=== PATIENT | female | born 1960 | race Caucasian/White ===

== ENCOUNTER → 2023-10-08 07:55 | Outpatient (REF) | payer BC, SELFPAY ==
[2023-10-08 10:06] LABS: % Basophils 0.4 % (0-2); % Eosinophils 1.8 % (0-6); % Immature Granulocytes 0.2 % (0-0.5); % Lymphocytes 55.1 % (20.5-51.1); % Monocytes 10.2 % (1.7-9.3); % Neutrophils 32.3 % (42.2-75.2); Absolute Eosinophils 0.1 10^3/uL (0-0.7); Absolute Lymphocytes 2.8 10^3/uL (1.2-3.4); Absolute Monocytes 0.5 10^3/uL (0.1-0.6); Absolute Neutrophils 1.7 10^3/uL (1.4-6.5); Hematocrit 42.4 % (37.0-47.0); Hemoglobin 14.8 g/dL (12.0-16.0); Mean Corp Hgb Conc. 34.9 g/dL (33.0-37.0); Mean Corpuscular Hgb 34.3 pg (27.0-31.0); Mean Corpuscular Volume 98.4 fL (81.0-99.0); Mean Platelet Volume 10.5 fL (7.4-10.4); Nucleated Red Blood Cells % 0 %; Platelet Count 215 10^3/uL (130-400); Red Blood Cell Count 4.31 10^6/uL (4.20-5.40); Red Cell Dist. Width 12.2 % (11.5-14.5); White Blood Cell Count 5.1 10^3/uL (4.8-10.8)
[2023-10-08 10:33] LABS: Blood Urea Nitrogen 16 mg/dl (7-17); Carbon Dioxide 26 mmol/L (22-30); Chloride 104 mmol/L (98-107); Glucose 91 mg/dl (70-99); Potassium 3.9 mmol/L (3.5-5.1); Sodium 139 mmol/L (135-145); eGFR > 60.00
== END ==
LOC: HWLAB 07:55
PROVIDERS: ATTENDING PHYSICIAN Orthopaedic Surgery; FAMILY PHYSICIAN Nurse Practitioner Adult Health
DX: Z01.818 Encounter for other preprocedural examination (principal)
CPT/HCPCS: 36415; 80048; 85025

== ENCOUNTER 2023-10-16 13:44 | Emergency (ER) | payer BC, SELFPAY ==
[2023-10-16 13:48] VITALS: BP 118/65
--- NOTE | 2023-10-16 15:26 | ED.GENMED ---
History of Present Illness
General
Chief Complaint: Ear Problem
Source: patient and spouse
Time Seen by Provider: 10/16/23 15:06
Travel History
Have you had any contact with someone who has COVID-19?: No
Do you have any symptoms of coronavirus? Fever > 100 degrees, chills, cough, shortness of breath, sore throat, loss of taste or smell, muscle aches, or headache?: No
History of Present Illness
History of Present Illness:
63-year-old female presenting to the emergency department for evaluation of right-sided ear pain that started over the last 24 hours, went to urgent care yesterday afternoon and was given drops but due to persistent symptoms today went back to the
urgent care where she was told she did not need the drops as she did not have an outer ear infection but was given a Z-Cristobal with concern for possible otitis media, took 1 dose of this medication but due to continued pain decided to come to the ER for
further evaluation. Patient notes that she never took the drops as she had been unable to picker/puller the drops this morning prior to going back to the urgent care. She endorses other URI-like symptoms including sinus congestion, mild cough and sore
throat but denies any fevers, chills, rigors. She also admits to a little bit of tinnitus and decreased hearing out of the right ear. Patient last took some Advil around 5 AM but has not taken anything since for the pain. Patient has no other
concerns at this time.
Past History
Past History
ED Past Medical History: GERD and Other (Cervical DJD, lumbar DJD)
ED Past Surgical History: Orthopedic (Lumbar laminectomy 2011, left knee meniscus repair, back surgery February 2014)
Social History
Tobacco: Non-smoker
Alcohol: Occasional
Drug: None
Personal:
Living: with family
Employment: Employed
Family History
Family History: Other (Breast cancer in her mother and father with coronary disease)
Review of Systems
Review of Systems
All Other Systems: ROS reviewed and negative except as documented in HPI and ROS
Phy Exam
Physical Exam
Physical Exam:
GENERAL: Alert , appears uncomfortable and holding her right ear
Head: Normocephalic atraumatic
EYE: conjunctiva clear
NECK: Supple, tender bilateral submandibular and preauricular lymphadenopathy, no meningismus
ENT: o/p clr, no tonsillar edema or exudates left TM is clear, No effusions, cone of light easily visualized, right TM is slightly dusky in appearance but without any effusion or erythema/bulging of the TM. There is no mastoid erythema or
tenderness there is no tenderness to the pinna or tragus. mmm.
CARDIAC: Regular rate and rhythm, no murmur
LUNGS: Clear breath sounds bilaterally, no acute respiratory distress, no wheezes/rales/rhonchi, intermittent nonproductive cough noted
NEUROLOGICAL: Alert and oriented
SKIN: Warm and dry, skin intact.
MUSCULOSKELETAL: well perfused.
PSYCH: Normal and appropriate interaction.
Scores
Heart Failure Risk
Heart Failure Risk Score: Not Applicable
Heart Score for Chest Pain Patients
STEMI patient?: Not applicable
Withdrawal Assessment of Alcohol
Withdrawal Assessment Completed?: Not applicable
Course
Vital Signs
Initial and Last Documented VS:
Initial Vital Signs
Temp Pulse Resp BP Pulse Ox
99.0 F 101 16 118/65 95
10/16/23 13:48 10/16/23 13:48 10/16/23 13:48 10/16/23 13:48 10/16/23 13:48
Last Documented Vital Signs
Temp Pulse Resp BP Pulse Ox
99.0 F 101 16 118/65 95
10/16/23 13:48 10/16/23 13:48 10/16/23 13:48 10/16/23 13:48 10/16/23 13:48
MDM/Problems Addressed
Differential Diagnosis Includes:
Viral URI, otitis media, otitis externa, mastoiditis, TMJ, neurologic etiology such as carotid dissection considered however given no risk factors outside of patient being a former smoker and combined with her upper respiratory-like symptoms I am
not suspicious for this as a likely diagnosis.
MDM/Problems Addressed:
63-year-old female present emergency department for evaluation of URI-like symptoms over the last few days, over the last 24 hours has had increased right-sided ear pain. Took 1 dose of a Z-Cristobal about 1 hour prior to arrival to the emergency
department. Has only attempted 1 dose of NSAIDs today. Advised patient continue NSAIDs/Tylenol as needed for pain. Will prescribe a steroid as well as Sudafed for continued pain management. I provided the patient with information for an ENT to
follow-up with as needed. She is otherwise stable for discharge home.
*Pulse Oximetry
Patient hypoxic: no
*Critical Care Note
Total Time (30-74mins, 75-104mins- exclusive of procedures): Not Applicable
ED Attending Note
-
Portions of this chart may have been created with voice recognition software.� Occasional wrong word or��sound alike� substitutions may have occurred due to the inherent limitations of voice recognition software.
Discharge Plan
Departure
Patient Disposition: Home (Routine Discharge)
Date of Disposition: 10/16/23
Time of Disposition: 15:28
Patient with high blood pressure during this ER visit?: No
Discharge Problem:
Otalgia of right ear
Instructions: Bacterial Upper Respiratory Infection, Adult (DC)
Prescriptions:
New
prednisone 10 mg Tablet
See Rx Instructions .ROUTE .COMPLEX Qty: 30 0RF
Rx Instructions:
Take By Mouth:
40 mg daily x3 days, 30 mg daily x3 days,
20 mg daily x3 days, 10 mg daily x3 days.
pseudoephedrine HCl [Sudafed] 30 mg tablet
60 mg PO ONCE PRN (Reason: congestion) Qty: 10 0RF
No Action
cyclobenzaprine 10 MG tablet
10 mg PO TIDPRN PRN (Reason: back; neck pain)
buspirone 5 MG tablet
5 - 10 mg PO TID
alprazolam 1 MG tablet
2 mg PO DAILY
dicyclomine 10 MG capsule
10 mg PO QIDPRN PRN (Reason: abd pain)
pantoprazole 40 MG tablet,delayed release (DR/EC)
40 mg PO DAILY Qty: 30 0RF
sucralfate 1 GRAM tablet
1 g PO ACHS Qty: 28 0RF
omeprazole 20 MG capsule,delayed release(DR/EC)
20 mg PO DAILY Qty: 20 0RF
famotidine 20 MG tablet
20 mg PO BID Qty: 28 0RF
Rx Instructions:
Take 20 mg twice a day for 14 days
ascorbic acid (vitamin C) [Vitamin C] 500 MG tablet
1,000 mg PO BID Qty: 56 0RF
Rx Instructions:
Take 1,000 mg twice a day for 14 days
aspirin 81 MG tablet,chewable
81 mg PO DAILY Qty: 14 0RF
Rx Instructions:
Take 81 mg daily for 14 days
zinc sulfate 220 MG capsule
220 mg PO DAILY Qty: 14 0RF
Rx Instructions:
Take 220 mg daily for 14 days
cholecalciferol (vitamin D3) 1,000 UNITS tablet
2,000 units PO DAILY Qty: 28 0RF
Rx Instructions:
Take 2,000 units daily for 14 days
melatonin 5 MG tablet
5 mg PO HS Qty: 14 0RF
Rx Instructions:
Take 5 mg daily at bedtime for 14 days
sucralfate [Carafate] 1 gram tablet
1 g PO ACHS Qty: 30 0RF
Referrals:
Nabil Ramires MD [Active] -
(ENT - Call for appointment as needed
)
Heavenly Porras NP [Family Provider] -
Interventions
Interventions:
*ED COVID-19 Vaccine History Last Done: 10/16/23 13:48
== END 2023-10-16 15:44 | disposition home or self-care (01) ==
LOC: EMR 13:44
PROVIDERS: EMERGENCY PHYSICIAN Emergency Medicine; FAMILY PHYSICIAN Nurse Practitioner Adult Health
DX: H92.01 Otalgia, right ear (principal); H93.11 Tinnitus, right ear; K21.9 Gastro-esophageal reflux disease without esophagitis; Z80.3 Family history of malignant neoplasm of breast; Z82.49 Family history of ischemic heart disease and other diseases of the circulatory system
CPT/HCPCS: 99282

== ENCOUNTER → 2024-01-10 15:48 | Outpatient (REF) | payer BC, SELFPAY ==
[2024-01-10 16:14] LABS: % Basophils 0.5 % (0-2); % Eosinophils 2.3 % (0-6); % Immature Granulocytes 0.3 % (0-0.5); % Lymphocytes 36.4 % (20.5-51.1); % Neutrophils 51.5 % (42.2-75.2); Absolute Eosinophils 0.2 10^3/uL (0-0.7); Absolute Lymphocytes 2.8 10^3/uL (1.2-3.4); Absolute Monocytes 0.7 10^3/uL (0.1-0.6); Hematocrit 41.8 % (37.0-47.0); Hemoglobin 15.1 g/dL (12.0-16.0); Mean Corp Hgb Conc. 36.1 g/dL (33.0-37.0); Mean Corpuscular Volume 91.5 fL (81.0-99.0); Mean Platelet Volume 9.6 fL (7.4-10.4); Nucleated Red Blood Cells % 0 %; Platelet Count 282 10^3/uL (130-400); Red Blood Cell Count 4.57 10^6/uL (4.20-5.40); Red Cell Dist. Width 11.7 % (11.5-14.5); White Blood Cell Count 7.8 10^3/uL (4.8-10.8)
[2024-01-10 16:28] LABS: Blood Urea Nitrogen 16 mg/dl (7-17); Calcium 9.9 mg/dl (8.4-10.2); Carbon Dioxide 26 mmol/L (22-30); Chloride 103 mmol/L (98-107); Glucose 89 mg/dl (70-99); Sodium 138 mmol/L (135-145); eGFR > 60.00
[2024-01-10 16:29] LABS: Erythrocyte Sed Rate 14 mm/hour (0-20)
[2024-01-10 17:03] LABS: C-Reactive Protein < 5.00 mg/L (0.0-10.00)
== END ==
LOC: REG 15:48
PROVIDERS: ATTENDING PHYSICIAN Physician Assistant Surgical; FAMILY PHYSICIAN Nurse Practitioner Adult Health
DX: Z01.818 Encounter for other preprocedural examination (principal); Z47.89 Encounter for other orthopedic aftercare
CPT/HCPCS: 36415; 80048; 85025; 85652; 86140

== ENCOUNTER 2024-01-12 06:21 | Day surgery (SDC) | payer BC, SELFPAY ==
[2024-01-12] VITALS (8 sets, daily range): BP systolic 110–130; BP diastolic 72–92; BMI 23.6
[2024-01-12] MEDS: TYLENOL 1000 MG PO (09:01)
[2024-01-12] MEDS: NORMOSOL-R 1000 IV (09:01)
[2024-01-12] MEDS: CELEBREX 200 MG PO (09:01)
[2024-01-12] MEDS: DILAUDID 0.5 MG IV ×2 (10:58→11:08)
[2024-01-12] MEDS: ROXICODONE 5 MG PO (11:48)
== END 2024-01-12 12:45 | disposition home or self-care (01) ==
LOC: SDS 06:21
PROVIDERS: ATTENDING PHYSICIAN Orthopaedic Surgery
DX: M24.662 Ankylosis, left knee (principal); T84.82XD Fibrosis due to internal orthopedic prosthetic devices, implants and grafts, subsequent encounter; Y83.1 Surgical operation with implant of artificial internal device as the cause of abnormal reaction of the patient, or of later complication, without mention of misadventure at the time of the procedure
CPT/HCPCS: 27570

== ENCOUNTER → 2024-02-17 06:48 | Outpatient (REF) | payer BC, SELFPAY | LOC: PAVMRI 06:48 | PROVIDERS: ATTENDING PHYSICIAN Orthopaedic Surgery; FAMILY PHYSICIAN Physician Assistant | DX: M25.562 Pain in left knee (principal) | CPT/HCPCS: 73721 ==

== ENCOUNTER → 2024-04-17 14:52 | Outpatient (REF) | payer BC, SELFPAY | LOC: HWWDC 14:52 | PROVIDERS: ATTENDING PHYSICIAN Physician Assistant | DX: Z12.31 Encounter for screening mammogram for malignant neoplasm of breast (principal) | CPT/HCPCS: 77063; 77067 ==

== ENCOUNTER → 2024-05-18 15:17 | Outpatient (REF) | payer BC, SELFPAY ==
[2024-05-18 16:01] LABS: % Basophils 0.5 % (0-2); % Eosinophils 1.7 % (0-6); % Immature Granulocytes 0.2 % (0-0.5); % Lymphocytes 33.7 % (20.5-51.1); % Monocytes 9.5 % (1.7-9.3); % Neutrophils 54.4 % (42.2-75.2); Absolute Eosinophils 0.1 10^3/uL (0-0.7); Absolute Monocytes 0.6 10^3/uL (0.1-0.6); Absolute Neutrophils 3.2 10^3/uL (1.4-6.5); Hematocrit 41.3 % (37.0-47.0); Hemoglobin 14.6 g/dL (12.0-16.0); Mean Corp Hgb Conc. 35.4 g/dL (33.0-37.0); Mean Corpuscular Hgb 34.1 pg (27.0-31.0); Mean Corpuscular Volume 96.5 fL (81.0-99.0); Mean Platelet Volume 10.1 fL (7.4-10.4); Nucleated Red Blood Cells % 0 %; Platelet Count 237 10^3/uL (130-400); Red Blood Cell Count 4.28 10^6/uL (4.20-5.40); Red Cell Dist. Width 11.7 % (11.5-14.5); White Blood Cell Count 5.8 10^3/uL (4.8-10.8)
[2024-05-18 16:14] LABS: C-Reactive Protein < 5.00 mg/L (0.0-10.00)
[2024-05-18 16:43] LABS: Erythrocyte Sed Rate 8 mm/hour (0-20)
== END ==
LOC: REG 15:17
PROVIDERS: ATTENDING PHYSICIAN Physician Assistant; FAMILY PHYSICIAN Physician Assistant
DX: Z96.652 Presence of left artificial knee joint (principal); M25.562 Pain in left knee; M25.462 Effusion, left knee
CPT/HCPCS: 36415; 85025; 85652; 86140

== ENCOUNTER → 2024-07-20 14:33 | Outpatient (REF) | payer BC, SELFPAY | LOC: HWRAD 14:33 | PROVIDERS: ATTENDING PHYSICIAN Orthopaedic Surgery; FAMILY PHYSICIAN Physician Assistant | DX: Z96.652 Presence of left artificial knee joint (principal) | CPT/HCPCS: 73700 ==

== ENCOUNTER → 2024-09-08 08:47 | Outpatient (REF) | payer BC, SELFPAY ==
[2024-09-08 12:19] LABS: % Basophils 1.1 % (0-2); % Eosinophils 4.4 % (0-6); % Immature Granulocytes 0.2 % (0-0.5); % Lymphocytes 47.3 % (20.5-51.1); % Monocytes 10.7 % (1.7-9.3); % Neutrophils 36.3 % (42.2-75.2); Absolute Basophils 0.1 10^3/uL (0-0.2); Absolute Eosinophils 0.2 10^3/uL (0-0.7); Absolute Lymphocytes 2.2 10^3/uL (1.2-3.4); Absolute Monocytes 0.5 10^3/uL (0.1-0.6); Absolute Neutrophils 1.7 10^3/uL (1.4-6.5); Hematocrit 41.1 % (37.0-47.0); Mean Corp Hgb Conc. 34.1 g/dL (33.0-37.0); Mean Corpuscular Hgb 33.6 pg (27.0-31.0); Mean Corpuscular Volume 98.6 fL (81.0-99.0); Mean Platelet Volume 10.1 fL (7.4-10.4); Nucleated Red Blood Cells % 0 %; Platelet Count 261 10^3/uL (130-400); Red Blood Cell Count 4.17 10^6/uL (4.20-5.40); Red Cell Dist. Width 11.6 % (11.5-14.5); White Blood Cell Count 4.6 10^3/uL (4.8-10.8)
[2024-09-08 16:17] LABS: ALT (SGPT) 13 U/L (0-35); AST (SGOT) 20 U/L (14-36); Albumin 3.9 g/dl (3.5-5.0); Alkaline Phosphatase 57 U/L (38-126); Blood Urea Nitrogen 14 mg/dl (7-17); Calcium 8.8 mg/dl (8.4-10.2); Carbon Dioxide 28 mmol/L (22-30); Chloride 105 mmol/L (98-107); Glucose 101 mg/dl (70-99); HDL Cholesterol 53 mg/dl; LDL Cholesterol, Calculated 108 mg/dl; Potassium 4.1 mmol/L (3.5-5.1); Sodium 140 mmol/L (135-145); Total Bilirubin 0.3 mg/dl (0.2-1.3); Total Cholesterol 186 mg/dl (50-199); Total Protein 6.4 g/dl (6.3-8.2); Triglyceride 126 mg/dl (10-149); Very Low Density Lipoprotein 25 mg/dl (0-30); eGFR > 60.00
[2024-09-08 16:41] LABS: TSH Reflex To Free T4 2.35 uIU/ml (0.47-4.68)
== END ==
LOC: HWLAB 08:47
PROVIDERS: ATTENDING PHYSICIAN Physician Assistant; REFERRING PHYSICIAN Orthopaedic Surgery
DX: Z13.220 Encounter for screening for lipoid disorders (principal); Z00.01 Encounter for general adult medical examination with abnormal findings; Z13.29 Encounter for screening for other suspected endocrine disorder
CPT/HCPCS: 36415; 80053; 80061; 84443; 85025

== ENCOUNTER 2024-09-26 08:55 | Inpatient (IN) | payer BC, MEDICARE, SELFPAY ==
[2024-09-12 13:24] LABS: Glycohemoglobin (HgbA1c) 5.3 % (4.0-5.6)
[2024-09-12 14:13] VITALS: BMI 25.8
[2024-09-20 14:09] VITALS: BMI 25.8
[2024-09-26] VITALS (14 sets, daily range): BP systolic 106–127; BP diastolic 59–76; PULSE 93; O2SAT 96
[2024-09-26] MEDS: CELEBREX 200 MG PO (08:29)
[2024-09-26] MEDS: TYLENOL 650 MG PO ×3 (08:29→21:09)
[2024-09-26] MEDS: NORMOSOL-R/PLASMALYTE-A 1000 IV ×2 (09:27→15:34)
[2024-09-26] MEDS: ROXICODONE 5 MG PO ×2 (12:49→21:09)
--- NOTE | 2024-09-26 13:50 | PTCARENOTE ---
Pt received from the PACU via bed. Transport was w/o incident. Pt is AAOX3, HRR, lungs are clear, resp. easy. Pt's left knee with Mepilex dressing, C/D/I, no drainage noted at this time. Pt denies nausea or pain. Pt instructed on plan of care. Pt
verbalized understanding of instructions. Call parker is within reach.
[2024-09-26] MEDS: TYLENOL PO ×2 (14:00→23:27)
--- NOTE | 2024-09-26 15:09 | OR.RPT ---
Operative Report
Operative Report
Orthopaedic Surgery Operative Note
DATE OF OPERATION: 09/26/2024
PREOPERATIVE DIAGNOSES: Painful left prosthetic knee; arthrofibrosis
POSTOPERATIVE DIAGNOSES: Same
OPERATION PERFORMED:
1. Revision left total knee arthroplasty, single component, polyethylene articular surface exchange and patella resurfacing - 22 modifer.
2. Debridement and irrigation left knee down to bone.
SURGEON: Umair Bourgeois MD
ASSISTANTS: Donald Julien PA-C who assisted with patient and limb positioning and retraction
ANESTHESIA: Spinal
COMPLICATIONS: None.
ESTIMATED BLOOD LOSS: 20mL
DRAINS: None
TOURNIQUET TIME: 33 minutes.
Explants:
- Nataly NexGen CR polyethylene surface for F4 components, 10mm
IMPLANTS:
- Nataly NexGen AC polyethylene surface for F4 components, 10mm
- Nataly all polyethylene patella component, 29mm
INDICATIONS: The patient presented to my office with debilitating left knee pain and stiffness. The patient had undergone TKA 01/2024 and developed stiffness and difficulty with range of motion. She had undergone manipulation under anesthesia which
failed to improve her flexion. She was stiff to about [address] and xrays showed appropriately positioned and sized components with centrally tracking patella. Infection workup was low concern for infection. We reviewed the natural
history of this problem, as well as the risks, benefits, and alternatives of various treatment options. The patient exhausted all nonoperative treatment options and wished to proceed with revision knee replacement surgery. The patient understood the
risks which included, but were not limited to, bleeding, infection, failure to relieve pain, more pain than preop, damage to blood vessels and nerves, need for reoperation, mechanical failure of the implants, wound healing problems, stiffness,
instability, blood clot, pulmonary embolism, myocardial infarction, pneumonia, arrhythmia, CVA, and . The patient accepted these risks and wished to proceed. All questions were answered, and informed consent was obtained.
PROCEDURE IN DETAIL: The patient was identified in the preoperative holding area. The left knee was identified as the operative site. The patient was taken in the operating room and placed in a supine position on the operating table. Spinal
anesthesia was performed. IV antibiotics and tranexamic acid were administered. A well-padded tourniquet was placed on the proximal thigh. All bony prominences were well padded. The limb was prepped and draped in the usual sterile fashion.
We performed a surgical time-out. An interarticular block was performed with local anesthetic with epinephrine. The limb was exsanguinated with an Esmarch bandage, then the tourniquet was inflated to 250 mmHg. The prior anterior midline scar was
excised. Dissection was carried down to the extensor mechanism. Full thickness skin flaps were carefully raised above the capsule. A medial parapatellar arthrotomy was performed.
There was extensive arthrofibrosis adhering between the anterior femur and extensor mechanism. No purulent fluid or nodular synovitis was encountered. A complete synnovetomy was performed in suprapatellar pouch and medial and lateral gutters with
care not to damage extensor mechanism or collateral ligaments. A subperiosteal peel was performed on the medial tibia. I excised scar tissue between the patella tendon and the anterior tibia to enhance exposure. The knee was flexed. The patella was
not everted - it was subluxated laterally. Further debridement was carried down, both sharp and with electrocautery, down to bone and the synovium was excised. Prior to incision, the knee could flex to about 70-80 degrees. After excision of
arthrofibrosis, the knee could gravity flex to a little past 90 degrees. The notch was inspected and debrided of the PCL and other capsular tissue. This improved gravity flexion to about 120 degrees.
The polyethylene liner was removed and inspected. The femoral and tibia components were inspected. A bone tamp was used to determine the components were well fixed. They appeared well positioned and well rotated. The metal surface of the tibia and
femur appeared intact without wear or corrosion. Decision was made to keep the femoral and tibial components. Revision equipment was available. With the polyethylene component out, the posterior capsule was debrided and synovectomy was performed.
Posterior capsule release was performed with hughes.
Trial spacers were inserted. The knee was well balanced in flexion and extension with extension to 0 and flexion to 120. The patella was inspected. Surrounding fibrinous tissue was excised down to cartialge. In extension, a mesured resection of the
patella was performed. The patella was sized, and lug holes were drilled. The trial patella surface tracked centrally without need for further releases. Cement was mixed in a vacuum mixer, and the patellar component was placed. The tourniquet was
let down, and meticulous hemostasis was achieved with electrocautery. Once the cement was fully polymerized, the knee was copiously irrigated. Any remnant synovium and particles were excised. The final polyethylene spacer was impacted into place
and engaged the locking mechanism. No soft tissues was interposed. The knee was again irrigated with copious saline and dilute betadine soak was performed. A fresh drape was placed on the field.
The arthrotomy was closed with 0-PDS. Once closed, an interarticular block was performed with local anesthetic with epi. The deep dermal layer was closed with 2-0 PDS, and the subcuticular skin was closed with 3-0 monocryl. A Dermabond Prineo
dressing was applied to the skin in full flexion. Once this was completely dry, a sterile waterproof dressing was applied.
The anesthesia team performed an adductor canal block in the OR. The patient awoke from anesthesia without any difficulties. The sponge and instrument counts were correct x2 at the end of the case. I was present and participated in the entire case.
Of note, 22 modifier was added to single-component TKA revision for additional procedure of patella resurfacing which added 20 additional minutes for exposure, preparing the bone, and implanting the component.
Beni Bourgeois MD
[2024-09-26] MEDS: ULTRAM PO (15:29)
[2024-09-26] MEDS: ROXICODONE 10 MG PO (15:33)
[2024-09-26] MEDS: LYRICA 100 MG PO ×2 (15:34→23:24)
[2024-09-26] MEDS: FLEXERIL 10 MG PO ×2 (16:23→23:25)
[2024-09-26] MEDS: ANCEF 5 IV (17:39)
[2024-09-26] MEDS: ASPIRIN 325 MG PO (17:48)
[2024-09-26] MEDS: ULTRAM 50 MG PO ×2 (17:49→23:25)
[2024-09-26] MEDS: COLACE 100 MG PO (21:09)
[2024-09-26] MEDS: SENOKOT 17.2 MG PO (21:09)
[2024-09-26] MEDS: BACTROBAN 2% OINTMENT 1 APPLIC NASAL (21:09)
[2024-09-26] MEDS: TORADOL 15 MG IV (21:10)
[2024-09-26] MEDS: DECADRON 6 MG IV (21:17)
[2024-09-26] MEDS: ZOFRAN 4 MG IV (21:19)
[2024-09-26] MEDS: XANAX 2 MG PO (23:24)
[2024-09-26] MEDS: BUSPAR 10 MG PO (23:24)
[2024-09-26] MEDS: PEPCID 40 MG PO (23:25)
[2024-09-27] MEDS: ANCEF 5 IV (01:00)
--- NOTE | 2024-09-27 03:15 | DOWNTIME ---
There was a [employer] Downtime on 09/27/2024 from 0100 to 09/27/2023 at 0205 . Downtime documentation of patient's care, including medication administrations, has been reconciled in the electronic record per guidelines. Refer to the
patient's paper chart under the miscellaneous tab to see printed paper medication records and downtime forms.
[2024-09-27 03:35] VITALS: BP 94/59
[2024-09-27] MEDS: TYLENOL PO (04:43)
[2024-09-27] MEDS: ROXICODONE 5 MG PO (05:47)
[2024-09-27 07:20] VITALS: BP 96/58
[2024-09-27] MEDS: SENOKOT 17.2 MG PO (08:25)
[2024-09-27] MEDS: FLEXERIL 10 MG PO (08:25)
[2024-09-27] MEDS: ASPIRIN 325 MG PO (08:25)
[2024-09-27] MEDS: TYLENOL 650 MG PO ×2 (08:25→13:00)
[2024-09-27] MEDS: LYRICA 100 MG PO (08:25)
[2024-09-27] MEDS: BACTROBAN 2% OINTMENT 1 APPLIC NASAL (08:26)
[2024-09-27] MEDS: COLACE 100 MG PO (08:26)
[2024-09-27] MEDS: ULTRAM 50 MG PO ×2 (08:26→13:00)
[2024-09-27] MEDS: TORADOL 15 MG IV (08:26)
[2024-09-27] MEDS: DECADRON 6 MG IV (08:27)
--- NOTE | 2024-09-27 10:23 | W.PN.ORTHO ---
Today's Communication / Plan
-
d/c
Assessment
.
Distal Motor Intact: Yes
Dressing:
Clean, dry and intact.
Plan
.
Surgery / Date: L TKA Revision 09/26/24
DVT Prophylaxis: Aspirin
Activity:
Out of bed.
PT/OT
Discharge Plan: Home w/ Outpatient PT
Subjective
.
.:
Patient resting comfortably.
Vital Signs and Labs
.
Vital Signs and Labs:
Temp Pulse Resp BP Pulse Ox
97.6 F 74 14 96/58 96
09/27/24 07:20 09/27/24 07:20 09/27/24 07:20 09/27/24 07:20 09/27/24 07:20
Physical Exam
-
HEENT: No pallor, cyanosis, or jaundice. Throat clear.
NECK: Supple. No JVD.
RESPIRATORY: Lungs clear to auscultation.
CVS: S1, S2 normal. RRR.� No murmur, rub or gallop.
ABDOMEN: Soft, non-tender. No distension. BS+/normal.
EXTREMITIES: strength equal, no calf pain with palpation
TOUCH UP PAINTER HAND: AOx3. No focal deficits. help aid grossly intact
--- NOTE | 2024-09-27 10:31 | CM ---
Met with pt at bedside
Pt reports she lives with her in a 2 story town home; has ramp access to entrance, 10 steps to 2nd fl
Independent at baseline, unemployed, drives
DME - rolling walker, single point cane, grab bars - tub, commode
SNF - denies past hx
HH - [facility] in past
to transport home
PCP - Magali Dang
Pharm - [facility]
Has outpatient PT appt tomorrow 09/28 at [facility]. Given Rx for PT. Has transport
Given IMM
Plan - anticipate home with outpatient PT
[2024-09-27 11:28] VITALS: BP 102/62
== END 2024-09-27 13:37 | disposition home or self-care (01) | DRG 489 ==
LOC: 2 SOUTH 08:55
PROVIDERS: ADMITTING PHYSICIAN Orthopaedic Surgery; FAMILY PHYSICIAN Physician Assistant
PROC: 0QUF0JZ Supplement Left Patella with Synthetic Substitute, Open Approach (ICD-10-PCS; 2024-09-26)
PROC: 0SPD09Z Removal of Liner from Left Knee Joint, Open Approach (ICD-10-PCS; 2024-09-26)
PROC: 0SUW09Z Supplement Left Knee Joint, Tibial Surface with Liner, Open Approach (ICD-10-PCS; 2024-09-26)
DX: T84.82XA Fibrosis due to internal orthopedic prosthetic devices, implants and grafts, initial encounter (principal); K76.0 Fatty (change of) liver, not elsewhere classified; F41.9 Anxiety disorder, unspecified; K21.9 Gastro-esophageal reflux disease without esophagitis; Y79.2 Prosthetic and other implants, materials and accessory orthopedic devices associated with adverse incidents; Z87.891 Personal history of nicotine dependence; Z88.0 Allergy status to penicillin; Z79.899 Other long term (current) drug therapy; Z79.82 Long term (current) use of aspirin
CPT/HCPCS: 36415; 73560; 83036; 86850; 86900; 86901; 87070; 93005; 97110; 97116; 97163; 97166; 97530; 97535; C1713; C1776

== ENCOUNTER 2025-03-29 10:39 | Emergency (ER) | payer BC, SELFPAY ==
[2025-03-29 10:39] VITALS: BMI 29.3
[2025-03-29 10:41] VITALS: BP 125/70
--- NOTE | 2025-03-29 11:19 | ED.GENMED ---
History of Present Illness
General
Chief Complaint: Musculo-Skeletal Complaint
Time Seen by Provider: 03/29/25 11:19
History of Present Illness
History of Present Illness:
TIME OF INITIAL EVALUATION
- 11:20 AM
REVIEW OF OLD RECORDS
- I reviewed CT imaging of the knee in 2023
Note:
CHIEF COMPLAINT(S)
Severe groin pain.
HISTORY OF PRESENT ILLNESS
The patient is a 64-year-old female with a history of knee surgeries, who presents with severe groin pain. The pain has persisted over the past few days and is described as radiating from the calf and knee to the groin area. The patient reports a
recent history of a urinary tract infection approximately a month ago but currently denies dysuria. She also reports prior back issues and has undergone back surgery with placement of rods and pins. There has been no recent MRI of the back, although
one was performed a few years ago. For pain, she has taken hcqf-ukn-lrugnbn Aleve (containing ibuprofen and acetaminophen) with some relief, although the pain recurs upon waking. She denies current use of prescription pain medications due to adverse
effects like nausea. The groin pains primary area is localized to the tendon of a muscle, and she finds it hard to lift her leg due to exacerbation of pain. No prior hip surgeries have been reported. The pain extends to the buttocks area as
described by the patient.
SOCIAL DETERMINANTS AFFECTING HEALTH
The patient prefers to avoid narcotic medications due to nausea and adverse effects experienced in the past.
REVIEW OF SYSTEMS
- Musculoskeletal: Severe groin pain radiating from the calf and knee, difficulty lifting the leg due to pain.
- Genitourinary: Recent history of urinary tract infection, currently denies painful urination.
PHYSICAL EXAM
General: Alert, no acute distress.
Skin: Warm, dry.
Head: Normocephalic, atraumatic.
Neck: Supple, trachea midline.
Eye, Ears, Nose, Mouth, and Throat: Oral mucosa moist.
Cardiovascular: Normal peripheral perfusion, no edema.
Respiratory: Respirations are non-labored.
Gastrointestinal: Abdomen nondistended.
Back: Normal range of motion, normal alignment.
Musculoskeletal: There is decreased active range of motion at the left hip primarily to the medial musculature of the left groin. There appears to be tenderness at the tendon of the proximal flexor muscles at the left, surgical scar noted to the
anterior left knee
Neurological: Alert and oriented to person, place, time, and situation, no focal neurological deficit observed.
Psychiatric: Cooperative, appropriate mood & affect.
PROBLEM LIST
- Acute groin pain
- History of knee surgeries with continued swelling and pain
- Recent urinary tract infection
PLAN
- Obtain X-rays of the pelvis and femur to rule out bony abnormalities.
- Administer an intramuscular injection of Toradol (ketorolac) for pain management.
- Offer acetaminophen 1000 mg for additional pain control.
- Avoid narcotic pain medications due to patient preference and history of nausea.
- Provide education on pain management alternatives and outpatient management strategies.
DIFFERENTIAL DIAGNOSIS
The Differential Diagnosis includes, in no particular order and is not limited to:
1. Muscular or tendon strain
2. Osteoarthritis of the hip
3. Femoroacetabular impingement
4. Hip bursitis
5. Lumbar radiculopathy
6. Femoral neck stress fracture
7. Sacroiliac joint dysfunction
8. Referred pain from knee or spine pathology
9. Psoas muscle pathology
10. Inguinal hernia
RADIOLOGY
- I personally reviewed x-rays of the pelvis and left femur�knee prosthesis noted no other abnormality found
UPDATE
- The patient was given Toradol. There is been no significant improvement on reassessment.
SUMMARY OF ENCOUNTER
The patient, a 64-year-old female, was seen in the emergency department for severe groin pain radiating from the calf and knee to the groin area, presenting initially with concerns that it might be related to a blood clot. After evaluation,
including X-ray imaging of the pelvis, femur, and knee, no bony abnormalities or loosening of the knee prosthesis were observed. The assessment concluded that the severe pain was likely due to muscle and tendon strain, rather than joint issues or
vascular concerns such as a blood clot. The patient had previously received an intramuscular injection of ketorolac (Toradol) for pain relief, which had not yet led to significant improvement.
DISPOSITION
The patient was discharged with recommendations to follow up with her physician, Dr. Duran, and to continue oral pain management with [id number]-lge-xpsaucv medications.
ASSESSMENT
Severe groin pain likely due to muscle and tendon strain.
EMERGENCY TREATMENTS ADMINISTERED
Ketorolac (Toradol) intramuscular injection.
PLAN
The patient was advised to increase her dosage of liwp-etz-pmvsopl ibuprofen and acetaminophen (dual-action formulation), taking four pills at once, up to three times a day, as needed for pain. She was instructed to follow up with her physician,
Renee, to potentially discuss an MRI if deemed appropriate.
INDEPENDENT REVIEW OF LABS AND INTERPRETATION OF TESTS
- My independent X-ray interpretation is unremarkable; no bony abnormalities or knee prosthesis issues detected.
PATIENT EDUCATION AND COUNSELING
The patient was educated on safe dosing of ibuprofen and acetaminophen and reassured about the lack of interactions with her current medications, Xanax (alprazolam) and buspirone.
FOLLOW-UP INSTRUCTIONS
The patient is instructed to follow-up with Dr. Duran next week for further evaluation and potential MRI if symptoms do not improve.
MEDICATION RECONCILIATION
The patient was advised to increase the dosage of her wmmy-qel-fjixpwd dual-action ibuprofen and acetaminophen to four pills at once, up to thrice daily, to manage her pain.
MEDICAL DECISION MAKING
-Complexity of Data Reviewed: Chronic conditions affecting care include history of knee surgeries, urinary tract infection, and back issues with surgery. Differential diagnosis included muscle or tendon strain, osteoarthritis of the hip,
femoroacetabular impingement, hip bursitis, lumbar radiculopathy, femoral neck stress fracture, sacroiliac joint dysfunction, referred pain from knee or spine pathology, psoas muscle pathology, and inguinal hernia.
-Data:
Category 1
My independent interpretation of X-ray imaging showed no bony abnormalities.
Category 3
The patients management plan was discussed with the patient regarding safe dosing and follow-up care.
-Risk: Prescription medication was not prescribed due to potential interactions with current medications and patients preference to avoid narcotics. The patient prefers to avoid narcotic medications due to past experiences with nausea.
Care significantly affected by Social Determinants of Health, particularly her preference to avoid narcotic medications.
DIAGNOSIS
- Muscle and tendon strain (ICD-10: M62.838)
The patient has follow-up with Ortho this coming week.
Past History
Past History
ED Past Medical History: GERD and Other (Cervical DJD, lumbar DJD)
ED Past Surgical History: Orthopedic (Lumbar laminectomy 2011, left knee meniscus repair, back surgery February 2014)
Social History
Tobacco: Non-smoker
Alcohol: Occasional
Drug: None
Personal:
Living: with family
Employment: Employed
Family History
Family History: Other (Breast cancer in her mother and father with coronary disease)
Phy Exam
Physical Exam
Physical Exam:
See HPI
Course
Orders/Labs/Results
Orders:
Orders
03/29/25 11:29
Ketorolac [Toradol] 30 mg IM NOW STA
CR Femur - Left Min 2 Vw Urgent
Comment:
Reason For Exam: pain
CR Pelvis - 1 Or 2 Views Urgent
Comment:
Reason For Exam: pain L groin
03/29/25 11:48
Ondansetron Orally Disint [Zofran Odt (Orally Disintegrating)] 4 mg PO NOW STA
Vital Signs
Initial and Last Documented VS:
Initial Vital Signs
Temp Pulse Resp BP Pulse Ox
36.7 C 70 18 125/70 98
03/29/25 10:41 03/29/25 10:41 03/29/25 10:41 03/29/25 10:41 03/29/25 10:41
Last Documented Vital Signs
Temp Pulse Resp BP Pulse Ox
36.6 C 75 19 131/86 96
03/29/25 11:59 03/29/25 12:04 03/29/25 12:04 03/29/25 12:02 03/29/25 12:04
*Pulse Oximetry
SaO2: 98
Oxygen Mode of Delivery: Room air
Patient hypoxic: no
*Critical Care Note
Total Time (30-74mins, 75-104mins- exclusive of procedures): Not Applicable
ED Attending Note
-
Portions of this chart may have been created with voice recognition software.� Occasional wrong word or��sound alike� substitutions may have occurred due to the inherent limitations of voice recognition software.
Discharge Plan
Departure
Patient Disposition: Home (Routine Discharge)
Date of Disposition: 03/29/25
Time of Disposition: 13:09
Patient with high blood pressure during this ER visit?: Yes
Discharge Problem:
Muscle strain
Instructions: Muscle Strain (DC), BLOOD PRESSURE
Prescriptions:
No Action
cyclobenzaprine 10 MG tablet
10 mg PO TIDPRN PRN (Reason: back; neck pain)
buspirone 5 MG tablet
10 mg PO HS
dicyclomine 10 MG capsule
10 mg PO QIDPRN PRN (Reason: abd pain)
alprazolam [Xanax] 2 mg Tablet
2 - 3 mg PO HS
turmeric
1,000 mg PO DAILY
aspirin 325 mg tablet
325 mg PO DAILY Qty: 1 0RF
Rx Instructions:
Take with food
cefadroxil 500 mg capsule
500 mg PO BID Qty: 14 0RF
Rx Instructions:
*Take w/ food
*Take w/ probiotic
*POST-OP USE
dexamethasone 4 mg tablet
4 mg PO BID Qty: 6 0RF
Rx Instructions:
take with food
post-op use only
docusate sodium [Colace] 100 mg capsule
100 mg PO BID Qty: 1 0RF
Saccharomyces boulardii [Florastor] 250 mg capsule
250 mg PO BID Qty: 1 0RF
sennosides [Senokot] 8.6 mg tablet
17.2 mg PO BID Qty: 2 0RF
acetaminophen [Tylenol] 325 mg tablet
650 mg PO QID Qty: 1 0RF
Rx Instructions:
SCHEDULED DOSING
meloxicam 15 mg tablet
15 mg PO DAILY Qty: 14 0RF
Rx Instructions:
take with food
post-op
magnesium hydroxide [Milk of Magnesia] 400 mg/5 mL suspension
30 ml PO HS PRN (Reason: Constipation) Qty: 1 0RF
ondansetron [ondansetron] 4 mg tablet,disintegrating
4 mg PO Q6H PRN (Reason: n/v) Qty: 20 0RF
Rx Instructions:
take 1/2h b/f pain med if recurrent nausea
allow to dissolve in mouth w/o water
oxycodone 5 mg tablet
5 mg PO Q6H PRN (Reason: 1 tab moderate pain, 2 tabs severe pain) Qty: 30 0RF
Rx Instructions:
Ongoing therapy
Referrals:
Umair Bourgeois MD [Active, Orthopedics]
Activity Restrictions/Additional Instructions:
The x-rays of the pelvis and femur were reviewed and showed no significant abnormality. As we discussed, you could take 4 of the dual action Advil at the same time no more than 3 times per day. We did give you a dose of Toradol while you were
here. Return here if worse or other concerns. Follow-up with your orthopedist this coming week.
Interventions
Interventions:
*Risk Screen - Suicide Last Done: 03/29/25 10:41
*General Assessment Last Done: 03/29/25 10:41
*Neglect/Abuse Screening Last Done: 03/29/25 11:57
*ED- Fall Risk Assessment Last Done: 03/29/25 11:57
*ED COVID-19 Vaccine History Last Done: 03/29/25 11:57
ED-Musculoskeletal Assessment Last Done: 03/29/25 11:46
Discharge Date and Time
Print Language: AUSTRIAN
[2025-03-29] MEDS: ZOFRAN ODT (ORALLY DISINTEGRATING) 4 MG PO (11:51)
[2025-03-29] MEDS: TORADOL 30 MG IM (11:52)
[2025-03-29 12:02] VITALS: BP 131/86
== END 2025-03-29 13:27 | disposition home or self-care (01) ==
LOC: EMR 10:39
PROVIDERS: EMERGENCY PHYSICIAN Emergency Medicine; FAMILY PHYSICIAN Physician Assistant
DX: S39.011A Strain of muscle, fascia and tendon of abdomen, initial encounter (principal); X58.XXXA Exposure to other specified factors, initial encounter; Z87.440 Personal history of urinary (tract) infections
CPT/HCPCS: 96372; 99284; 72170; 73552

== ENCOUNTER → 2025-04-19 13:55 | Outpatient (REF) | payer BC, SELFPAY | LOC: HWWDC 13:55 | PROVIDERS: ATTENDING PHYSICIAN Physician Assistant; REFERRING PHYSICIAN Physician Assistant | DX: Z12.31 Encounter for screening mammogram for malignant neoplasm of breast (principal) | CPT/HCPCS: 77063; 77067 ==

== ENCOUNTER 2025-04-23 10:34 | Emergency (ER) | payer BC, SELFPAY ==
[2025-04-23 10:47] VITALS: BP 125/74
--- NOTE | 2025-04-23 13:04 | ED.GENMED ---
History of Present Illness
General
Chief Complaint: Musculo-Skeletal Complaint
Time Seen by Provider: 04/23/25 12:39
History of Present Illness
History of Present Illness:
64-year-old female presents to the emergency department for evaluation of severe left groin pain and inability to ambulate. She had an MRI completed yesterday at an outside facility ordered by orthopedics showing left superior and inferior pubic
rami fractures, nondisplaced. No evidence for hip or lumbar spine fractures. She has been taking NSAIDs with only minimal improvement. Typically does not use a cane or a walker. She denies any initial fall and feels as though she caused this
injury while working out at the gym
Past History
Past History
ED Past Medical History: GERD and Other (Cervical DJD, lumbar DJD)
ED Past Surgical History: Orthopedic (Lumbar laminectomy 2011, left knee meniscus repair, back surgery February 2014)
Social History
Tobacco: Non-smoker
Alcohol: Occasional
Drug: None
Personal:
Living: with family
Employment: Employed
Family History
Family History: Other (Breast cancer in her mother and father with coronary disease)
Review of Systems
Review of Systems
Allergies reviewed?: Yes
All Other Systems: ROS reviewed and negative except as documented in HPI and ROS
Phy Exam
Physical Exam
Physical Exam:
GEN: Well appearing, NAD, WDWN
HEENT: Oral mucosa moist, no scleral icterus
Cardiac: Regular rate
Lung: No respiratory distress, no tachypnea
MSK: No gross deformity or injuries
Skin: Good color, no pallor or jaundice, no rashes
Neuro: AO x3, moves all extremities freely
Psych: Calm, cooperative
Course
Orders/Labs/Results
Orders:
Orders
04/23/25 13:02
Acetaminophen [Tylenol] 1,000 mg PO NOW STA
Oxycodone [Roxicodone] 5 mg PO NOW STA
Pt Eval And Treat Urgent
Treatment: L sup/inf pubic rami fx, WBAT
Activity Level: Ambulate
04/23/25 13:21
Ondansetron Orally Disint [Zofran Odt (Orally Disintegrating)] 4 mg PO NOW STA
04/23/25 14:50
Case Management Consult ONCE
Case Management Consult: VN/Home Care
Comment: Home PT
Vital Signs
Initial and Last Documented VS:
Initial Vital Signs
Temp Pulse Resp BP Pulse Ox
97.8 F 66 16 125/74 99
04/23/25 10:47 04/23/25 10:47 04/23/25 10:47 04/23/25 10:47 04/23/25 10:47
Last Documented Vital Signs
Temp Pulse Resp BP Pulse Ox
97.8 F 66 16 125/74 99
04/23/25 10:47 04/23/25 10:47 04/23/25 10:47 04/23/25 10:47 04/23/25 13:06
MDM/Problems Addressed
MDM/Problems Addressed:
64-year-old female presents due to intractable hip and pelvic pain with outpatient MRI confirming fractures of the inferior and superior pubic rami. She was given pain medication and was able to ambulate steadily in the emergency department with
walker assistance. PT evaluated the patient and at this time she does not meet criteria for inpatient rehab. Has orthopedic follow-up tomorrow
*Pulse Oximetry
SaO2: 99
Oxygen Mode of Delivery: Room air
Patient hypoxic: no
*Critical Care Note
Total Time (30-74mins, 75-104mins- exclusive of procedures): Not Applicable
ED Attending Note
-
Portions of this chart may have been created with voice recognition software.� Occasional wrong word or��sound alike� substitutions may have occurred due to the inherent limitations of voice recognition software.
Discharge Plan
Departure
Patient Disposition: Home (Routine Discharge)
Date of Disposition: 04/23/25
Time of Disposition: 15:24
Patient with high blood pressure during this ER visit?: No
Discharge Problem:
Fracture of multiple pubic rami
Instructions: Pelvic fracture
Prescriptions:
New
oxycodone-acetaminophen [Percocet] 5-325 mg tablet
1 tab PO Q6HPRN PRN (Reason: pain) Qty: 8 0RF
ondansetron 4 mg tablet,disintegrating
4 mg PO TIDPRN PRN (Reason: nausea/vomiting) Qty: 10 0RF
No Action
cyclobenzaprine 10 MG tablet
10 mg PO TIDPRN PRN (Reason: back; neck pain)
buspirone 5 MG tablet
10 mg PO HS
dicyclomine 10 MG capsule
10 mg PO QIDPRN PRN (Reason: abd pain)
alprazolam [Xanax] 2 mg Tablet
2 - 3 mg PO HS
turmeric
1,000 mg PO DAILY
aspirin 325 mg tablet
325 mg PO DAILY Qty: 1 0RF
Rx Instructions:
Take with food
cefadroxil 500 mg capsule
500 mg PO BID Qty: 14 0RF
Rx Instructions:
*Take w/ food
*Take w/ probiotic
*POST-OP USE
dexamethasone 4 mg tablet
4 mg PO BID Qty: 6 0RF
Rx Instructions:
take with food
post-op use only
docusate sodium [Colace] 100 mg capsule
100 mg PO BID Qty: 1 0RF
Saccharomyces boulardii [Florastor] 250 mg capsule
250 mg PO BID Qty: 1 0RF
sennosides [Senokot] 8.6 mg tablet
17.2 mg PO BID Qty: 2 0RF
acetaminophen [Tylenol] 325 mg tablet
650 mg PO QID Qty: 1 0RF
Rx Instructions:
SCHEDULED DOSING
meloxicam 15 mg tablet
15 mg PO DAILY Qty: 14 0RF
Rx Instructions:
take with food
post-op
magnesium hydroxide [Milk of Magnesia] 400 mg/5 mL suspension
30 ml PO HS PRN (Reason: Constipation) Qty: 1 0RF
ondansetron [ondansetron] 4 mg tablet,disintegrating
4 mg PO Q6H PRN (Reason: n/v) Qty: 20 0RF
Rx Instructions:
take 1/2h b/f pain med if recurrent nausea
allow to dissolve in mouth w/o water
oxycodone 5 mg tablet
5 mg PO Q6H PRN (Reason: 1 tab moderate pain, 2 tabs severe pain) Qty: 30 0RF
Rx Instructions:
Ongoing therapy
Referrals:
Karmen Vang PA-C [Family Provider]
Activity Restrictions/Additional Instructions:
Use the cane or walker at all times when attempting to walk. Follow-up with physical therapy as discussed as well as orthopedics tomorrow
Interventions
Interventions:
*Nursing Disposition Last Done: 04/23/25 15:48
ED-Musculoskeletal Assessment Last Done: 04/23/25 14:03
Discharge Date and Time
Discharge Date/Time: 04/23/25 15:49
Print Language: SPANISH
[2025-04-23] MEDS: TYLENOL 1000 MG PO (13:19)
[2025-04-23] MEDS: ROXICODONE 5 MG PO (13:20)
[2025-04-23] MEDS: ZOFRAN ODT (ORALLY DISINTEGRATING) 4 MG PO (13:25)
--- NOTE | 2025-04-23 15:12 | CM ---
CM received consult, met with pt and bedside in ED. Lives with , 2 story town home, ramp access to enter, first floor half BA, second floor BR/full BA.
Independent in ADLs, personal care and ambulation at baseline, has RW and SPC. Also has grab bars for toilet and tub.
Confirms prescription coverage.
Discussed home PT/OT, pt agreeable to [facility] referral, referral placed via [facility].
Hx [facility] after knee replacement surgery.
PCP: Karmen Vang
Pharmacy: [facility]
== END 2025-04-23 15:49 | disposition home or self-care (01) ==
LOC: EMR 10:34
PROVIDERS: EMERGENCY PHYSICIAN Emergency Medicine; FAMILY PHYSICIAN Physician Assistant
DX: S32.512A Fracture of superior rim of left pubis, initial encounter for closed fracture (principal); S32.592A Other specified fracture of left pubis, initial encounter for closed fracture; X58.XXXA Exposure to other specified factors, initial encounter
CPT/HCPCS: 99283

== ENCOUNTER → 2025-08-13 12:00 | Outpatient (REF) | payer BC, SELFPAY ==
[2025-08-13 13:05] LABS: Hematocrit 44.3 % (37.0-47.0); Hemoglobin 15.1 g/dL (12.0-16.0); Mean Corp Hgb Conc. 34.1 g/dL (33.0-37.0); Mean Corpuscular Volume 97.1 fL (81.0-99.0); Nucleated Red Blood Cells % 0 %; Platelet Count 262 10^3/uL (130-400); Red Cell Dist. Width 11.7 % (11.5-14.5)
[2025-08-13 13:53] LABS: ALT (SGPT) 20 U/L (0-35); AST (SGOT) 25 U/L (14-36); Albumin 4.4 g/dl (3.5-5.0); Alkaline Phosphatase 63 U/L (38-126); Blood Urea Nitrogen 12 mg/dl (7-17); Calcium 9.4 mg/dl (8.4-10.2); Carbon Dioxide 30 mmol/L (22-30); Chloride 103 mmol/L (98-107); Glucose 88 mg/dl (70-99); HDL Cholesterol 57 mg/dl; LDL Cholesterol, Calculated 118 mg/dl; Potassium 4.5 mmol/L (3.5-5.1); Sodium 137 mmol/L (135-145); Total Protein 7.3 g/dl (6.3-8.2); Very Low Density Lipoprotein 28 mg/dl (0-30); eGFR > 60.00
== END ==
LOC: REG 12:00
PROVIDERS: ATTENDING PHYSICIAN Physician Assistant
DX: F41.8 Other specified anxiety disorders (principal); K58.2 Mixed irritable bowel syndrome; Z71.89 Other specified counseling; Z68.25 Body mass index [BMI] 25.0-25.9, adult; E66.3 Overweight; F13.20 Sedative, hypnotic or anxiolytic dependence, uncomplicated; M51.35 Other intervertebral disc degeneration, thoracolumbar region; M81.0 Age-related osteoporosis without current pathological fracture; Z13.220 Encounter for screening for lipoid disorders; Z13.29 Encounter for screening for other suspected endocrine disorder
CPT/HCPCS: 36415; 80053; 80061; 84443; 85025